=== PATIENT | male | born 1965 ===

== ENCOUNTER 2016-10-12 06:15 | Day surgery (SDC) | payer BC ==
[2016-10-12] VITALS (9 sets, daily range): BP systolic 104–125; BP diastolic 64–87
[~2016-10-12] VITALS: Ht 165.1 cm; Wt 81.6 kg
[2016-10-12] MEDS ORDERED: VITAMIN B-122000 MC1 PO (06:45)
[2016-10-12] MEDS ORDERED: VITAMIN C500 M1 ORAL (06:45)
[2016-10-12] MEDS ORDERED: OMEGA-31000 M1 PO (06:45)
[2016-10-12] MEDS ORDERED: LR 1000ml 1,000 ML IVLG SCH (06:57)
--- NOTE | 2016-10-12 06:57 | Anethesia Preoperative Eval ---
Anesthesia Pre-op PMH/ROS General Date of Evaluation: October 12, 2016 Time of Evaluation: 06:54 Anesthesiologist: Alexia ASA Score: ASA 2 Mallampati Score Class I : Soft palate, uvula, fauces, pillars visible Class II: Soft palate, uvula, fauces visible Class III: Soft palate, base of uvula visible Class IV: Only hard plate visible Mallampati Classification: Class II Surgeon: Jh Diagnosis: Colon CA screning Surgical Procedure: Colonoscopy Anesthesia History: none Family History: no anesthesia problems Allergies: Coded Allergies: No Known Allergies (Unverified , 10/12/16) Medications: see eMAR Past Medical History Cardiovascular: Reports: HTN - mild, Denies: CAD, MS, arrhythmia, other, valve dz Pulmonary: Denies: COPD, [place], asthma, other Gastrointestinal/Genitourinary: Reports: GERD, Denies: CRI, ESRD, other Neurologic/Psychiatric: Denies: CVA, TIA, dementia, depression/anxiety, other Endocrine: Denies: DM, hypothyroidism, other, steroids HEENT: Denies: [place] (L), [place] (R), cataract (L), cataract (R), glaucoma, other Hematology/Immune: Denies: DVT, anemia, bleeding disorder, other Musculoskeletal/Integumentary: Denies: DDD, DJD, OA, RA, edema, other Other: other - overweight PMH Narrative: as above PSxH Narrative: none Anesthesia Pre-op Phys. Exam Physician Exam Last Vital Signs Date Time Temp Pulse Resp B/P Pulse Ox O2 Delivery O2 Flow Rate FiO2 10/12/16 06:39 97.6 93 18 117/72 99 Room Air Constitutional: NAD Neurologic: CN 2-12 intact Cardiovascular: RRR, no M/R/G Respiratory: CTA Gastrointestinal: S/NT/ND Airway Exam Mallampati Score: Class II MO: full Neck: flxible ROM: full Teeth: intact Dentures: no lower, no upper Anesthesia Pre-op A/P Risk Assessment & Plan Assessment: ASA 2 Plan: MAC Status Change Before Surgery: No Pre-Antibiotics Drug: none RADHA MENDES M.D. October 12, 2016 06:57
[2016-10-12] MEDS ORDERED: Midazolam 2mg/2ml Inj ONE (07:00)
[2016-10-12] MEDS ORDERED: fentaNYL 100 mcg/2 mL IV ONE (07:00)
[2016-10-12] MEDS ORDERED: LR 1000ml ONE (07:00)
[2016-10-12] MEDS ORDERED: Meperidine 25mg/0.5ml Inj IV PRN (07:00)
[2016-10-12] MEDS ORDERED: Propofol 10mg/ml 20ml IV ONE (07:00)
[2016-10-12] MEDS ORDERED: DiphenhydrAMINE 50mg/ml Inj IVP PRN (07:00)
--- NOTE | 2016-10-12 07:13 | Pre-Procedure Note/Attestation ---
Pre-Procedure Note/Attestation Complete Prior to Procedure Planned Procedure: not applicable Procedure Narrative: colonoscopy Indications for Procedure Pre-Operative Diagnosis: screen Attestation I attest that I discussed the nature of the procedure; its benefits; risks and complications; and alternatives (and the risks and benefits of such alternatives ), prior to the procedure, with the patient (or the patient's legal sales promotion representative). I attest that, if there was a reasonable possibility of needing a blood transfusion, the patient (or the patient's legal sales promotion representative) was given the [facility] standardized written summary, pursuant to the Rudi Toya Blood Safety Act ([place] Health and Safety Code # 1645, as amended). I attest that I re-evaluated the patient just prior to the surgery and that there has been no change in the patient's H&P, except as documented below: ALISON KING October 12, 2016 07:13
--- NOTE | 2016-10-12 07:13 | Short Stay Surgery H&P ---
History of Present Illness History of Present Illness Chief Complaint see typed H&P HPI Kyle Syed is a 50 year old male who was admitted on for Colon Screening Patient History Allergies: Coded Allergies: No Known Allergies (Unverified , 10/12/16) PAST MEDICAL HISTORY: Past Surgeries: Social History: Medication History Scheduled Ascorbic Acid* (Vitamin C*), 500 MG ORAL DAILY, (Reported) Cyanocobalamin (Vitamin B-12) (Vitamin B-12), 2,000 MCG PO DAILY, (Reported) Kemah-3 Fatty Acids (Kemah-3), 1,000 MG PO DAILY, (Reported) Physical Exam Vital Signs Last Vital Signs Date Time Temp Pulse Resp B/P Pulse Ox O2 Delivery O2 Flow Rate FiO2 10/12/16 06:39 97.6 93 18 117/72 99 Room Air Plan Attestation Are the patient's medical conditions optimized for surgery? ALISON KING October 12, 2016 07:13
--- NOTE | 2016-10-12 07:47 | Immediate Post-Op Evaluation ---
Immediate Post-Op Evalulation Immediate Post-Op Evalulation Procedure: Colonoscopy Date of Evaluation: October 12, 2016 Time of Evaluation: 07:44 IV Fluids: 400 Blood Products: none Estimated Blood Loss: none Urinary Output: none Blood Pressure Systolic: 104 Blood Pressure Diastolic: 56 Pulse Rate: 72 Respiratory Rate: 20 O2 Sat by Pulse Oximetry: 99 Temperature (Fahrenheit): 97.6 Pain Score (1-10): 1 Nausea: No Vomiting: No Complications none Patient Status: awake, patent, none Hydration Status: adequate RADHA MENDES M.D. October 12, 2016 07:46
--- NOTE | 2016-10-12 09:33 | Endoscopy Procedure Note ---
Endoscopy Procedure Note Indication for Procedure: screen Operative Findings/Diagnosis: nl Specimen: none Estimated Blood Loss: none Anesthesiologist: see report Anesthesia: MAC Implant(s) used?: No 50 yrs or older w/o bx or poly: Yes 10yrs. F/U not recommended: Yes If not recommended, why?: 10 yrs. F/U needed: Yes 18 years or older w/prev. colo: No <3yrs. since last colonoscopy: No Med reason:<3 yrs.: System Reason:<3 yrs.: Last colonoscopy >= to 3yrs: Yes ALISON KING October 12, 2016 09:33
--- NOTE | 2016-10-12 09:34 | Brief Operative Note ---
Immediate Post Operative Note Operative Note Chief Complaint: screen Pre-op Diagnosis: screen Procedure: colon Post-op Diagnosis: normal Surgeon: fanny Anesthesiologist: see report Anesthesia: MAC Specimen: none Complications: none Condition: stable Estimated Blood Loss: none Drains: none Implant(s) used?: No ALISON KING October 12, 2016 09:34
--- NOTE | 2016-10-12 10:53 | 48 Hour Post Anesthesia Eval ---
Post Anesthesia Evaluation Procedure: Colonoscopy Date of Evaluation: October 12, 2016 Time of Evaluation: 10:52 Blood Pressure Systolic: 112 0: 64 Pulse Rate: 78 Respiratory Rate: 20 Temperature (Fahrenheit): 97.4 O2 Sat by Pulse Oximetry: 99 Airway: patent Nausea: No Vomiting: No Pain Intensity: 1 Hydration Status: adequate Cardiopulmonary Status: stable Mental Status/LOC: patient returned to baseline Follow-up Care/Observations: n/a Post-Anesthesia Complications: none Follow-up care needed: ready to discharge RADHA MENDES M.D. October 12, 2016 10:53
--- NOTE | 2016-10-15 15:58 | Operative Note - Dictated ---
DATE OF OPERATION: 10/12/2016 PROCEDURE: Screening colonoscopy. SURGEON: Henrry Garcia M.D. ANESTHESIA: Please see the separate anesthesiologist notes for details. PRE-ENDOSCOPIC DIAGNOSIS: Screening. POST-ENDOSCOPIC DIAGNOSIS: Normal colonoscopy. DESCRIPTION OF PROCEDURE: The procedure, its risks, indications, alternatives, and possible complications were explained and informed consent was obtained. The colonoscope was introduced into the rectum after rectal exam was done and advanced to the cecum without any difficulty. The cecum was identified by the appearance of the ileocecal valve. The colonoscope was then gradually withdrawn and the mucosa examined carefully. Examination of the colonic mucosa as well as retroflexed view of the rectum did not reveal any abnormalities. The colonoscope was removed and the patient was sent to recovery in good condition. COMPLICATIONS: None. RECOMMENDATIONS: 1. The patient is to resume oral diet. 2. Outpatient followup. Henrry Garcia M.D. DR: CRISTIAN JOB#: [id number] CC:
== END 2016-10-12 09:30 | disposition home or self-care (01) ==
LOC: GAS 06:15
DX: Z12.11 Encounter for screening for malignant neoplasm of colon (principal); I10 Essential (primary) hypertension; K21.9 Gastro-esophageal reflux disease without esophagitis; E66.3 Overweight
CPT/HCPCS: 45378; J2250; J2704; J3010; J7120; 94003; 94150